=== PATIENT | male | born 2000 | race Caucasian/White ===

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

== ENCOUNTER 2022-07-04 08:39 | Emergency (ER) | payer BC, SELFPAY ==
[2022-07-04 08:44] VITALS: BP 104/65; PULSE 60; RESP 14; TEMP 36.8; O2SAT 100
--- NOTE | 2022-07-04 08:46 | ED.URI ---
HPI - URI/Sore Throat General Chief Complaint: Upper Respiratory Infection Stated Complaint: Headache/Sore Throat Time Seen by Provider: 07/04/22 08:46 Source: patient and RN notes reviewed History of Present Illness HPI Narrative: Patient is a 22-year-old male who presents the urgent care with complaints of headache, sore throat, nasal congestion since Monday. Patient denies of any fever or vomiting. Denies of taking anything [id number] for his symptoms. Denies of any ill exposures. No other acute complaints. No acute distress noted. Patient aware of the plan of care. Some parts of this dictation were generated by voice recognition software and may contain typographical and/or grammatical inaccuracies. Related Data Home Medications Medication Instructions Recorded Confirmed No Home Medications 09/16/21 07/04/22 Allergies Allergy/AdvReac Type Severity Reaction Status Date / Time amoxicillin Allergy Rash Verified 07/04/22 08:53 Review of Systems Review of Systems: CONSTITUTIONAL: Denies fever, chills, or sweats. EYES: Denies visual changes, redness, or discharge. ENT: Denies rhinorrhea, congestion, otalgia. Reports of sore throat CARDIOVASCULAR: Denies chest pain, palpitations, or edema. RESPIRATORY: Denies cough or dyspnea. GASTROINTESTINAL: Denies abdominal pain, nausea, vomiting, or diarrhea. GENITOURINARY: Denies dysuria or hematuria. SKIN: Denies rash or itching. MUSCULOSKELETAL: Denies back pain, joint pain, or myalgia. NEUROLOGIC: Reports of headache All other systems reviewed are negative, except as documented in HPI. [facility] Family History Family History (Updated 09/16/21 @ 18:41 by HATTIE Kenney) Other Family history non-contributory Comments At the time of my signature, I reviewed and agree with the nursing past medical, surgical, social, and family history. There is no relevant family history pertinent to the patient complaint. Exam Narrative: GENERAL: This is a well-nourished, well-developed patient, in no apparent distress. HEAD: normocephalic, atraumatic. EYES: PERRL. Sclera clear/white. Vision is grossly intact. EARS: External ears normal, auditory canals clear and without drainage, TMs normal without perforation. Hearing grossly intact. NOSE: External nose normal with no obvious nasal discharge, nares without redness, no rhinorrhea. THROAT: Mucous membranes moist, posterior pharynx clear. Mild postnasal drainage NECK: Neck supple CARDIOVASCULAR: Regular rate and rhythm without murmurs, gallops, or rubs. RESPIRATORY: Clear to auscultation. Breath sounds equal bilaterally. No wheezes, rales, or rhonchi. SKIN: warm, intact with no suspicious lesions or rash, good texture and turgor. NEURO: awake, alert, and oriented to person, place and time. There were no obvious focal neurologic abnormalities. EXTREMITIES: No clubbing, cyanosis, or edema. Course Course Level of Care: Express Care Visit Vital Signs Vital signs: Vital Signs Temperature 98.3 F 07/04/22 08:44 Pulse Rate 60 07/04/22 08:44 Respiratory Rate 14 07/04/22 08:44 Blood Pressure 104/65 07/04/22 08:44 Pulse Oximetry 100 07/04/22 08:44 Oxygen Delivery Room Air 07/04/22 08:44 Temperature 98.3 F 07/04/22 08:44 Pulse Rate 60 07/04/22 08:44 Respiratory Rate 14 07/04/22 08:44 Blood Pressure 104/65 07/04/22 08:44 Pulse Oximetry 100 07/04/22 08:44 Oxygen Delivery Room Air 07/04/22 08:44 Reviewed MDM - URI/Sore Throat MDM Narrative Medical decision making narrative: Reviewed lab results with the patient. He is aware that strep swab was negative. Educated patient on culture and we will call within 72 hours if culture is positive and antibiotics are necessary. Use Tylenol/ibuprofen as needed. Take a daily antihistamine such as Claritin or Zyrtec. Use Flonase nasal spray for postnasal drainage. Take Benadryl prior to bedtime. Do not sleep with with the windows open or
== END 2022-07-04 09:05 | disposition home or self-care (01) ==
PROVIDERS: Emergency Provider Nurse Practitioner Family
DX: J02.9 Acute pharyngitis, unspecified (principal)
CPT/HCPCS: 87081; 87880; 99213; G0463